=== PATIENT | female | born 1965 | race Caucasian/White ===

== ENCOUNTER 2016-11-29 07:44 | Day surgery (SDC) | payer OTHER ==
[~2016-11-29] VITALS: Ht 149.9 cm; Wt 81.6 kg
[2016-11-29] MEDS ORDERED: RANITIDINE HCL150 M2 PO (08:58)
[2016-11-29] MEDS ORDERED: MOBIC7.5 MG PO (08:58)
[2016-11-29] MEDS ORDERED: LIDOCAINE 2% 100 MG/5 ML UJET TP ONE (09:04)
[2016-11-29] MEDS ORDERED: fentaNYL 0.05 MG/ML VIAL ONE (09:04)
[2016-11-29] MEDS ORDERED: MIDAZOLAM 2 MG/2 ML VIAL ONE (09:04)
[2016-11-29] MEDS ORDERED: MIDAZOLAM 2 MG/2 ML VIAL IVP ONE (10:25)
[2016-11-29] MEDS ORDERED: fentaNYL 0.05 MG/ML VIAL IVP ONE (10:25)
== END 2016-11-29 11:13 | disposition home or self-care (01) ==
LOC: MDS 07:44 → MMU 07:45 → MDS 11:13
PROVIDERS: ATTEND Internal Medicine Gastroenterology
DX: Z12.11 Encounter for screening for malignant neoplasm of colon (principal); K44.9 Diaphragmatic hernia without obstruction or gangrene; K29.70 Gastritis, unspecified, without bleeding; Z98.890 Other specified postprocedural states
CPT/HCPCS: 36415; 43239; 45378; 86677; J2250; J3010